=== PATIENT | male | born 1955 | race Caucasian/White ===

== ENCOUNTER 2019-05-25 09:33 | Emergency (ER) | payer MEDICARE ==
[2019-05-25] MEDS ORDERED: Calcium Carbonate 500 MG Tab.Chew PO ONE (10:52)
--- NOTE | 2019-05-25 10:58 | EDM.PDOC ---
ED HPI GENERAL MEDICAL PROBLEM - General Chief Complaint: General Stated Complaint: HEART??? Time Seen by Provider: 05/25/19 10:40 Source of Information: Reports: Patient, Old Records, RN History Limitations: Reports: No Limitations - History of Present Illness INITIAL COMMENTS - FREE TEXT/NARRATIVE: 64 yo male presents to the ER due to defibrillator beeping. He lost the cord to his testing device that connects to the phone system so couldn't test it himself. He called [facility] and was told to come to the ER. The beeping has been on and off since yesterday morning. He feels fine. Onset: Sudden Onset Date: 05/24/19 Duration: Day(s): (1+), Intermittent Location: Reports: Chest Quality: Reports: Other (no pain) Severity: Mild Improves with: Reports: None Worsens with: Reports: Other (unknown) Context: Reports: Other (See HPI) Associated Symptoms: Reports: No Other Symptoms Treatments STATION MASTER: Reports: Other (see below) (none) - Related Data Allergies Allergy/AdvReac Type Severity Reaction Status Date / Time No Known Allergies Allergy Verified 05/25/19 09:54 Home Meds: Home Meds Amiodarone HCl [Pacerone] 200 mg PO DAILY 05/25/19 [History] Metoprolol Succinate 25 mg PO DAILY 05/25/19 [History] Past Medical History Cardiovascular History: Reports: Heart Murmur, Hypertension, [place] Other Cardiovascular History: left bundle branch block Social & Family History - Tobacco Use Smoking Status *Q: Unknown Ever Smoked ED ROS GENERAL - Review of Systems Review Of Systems: See Below Constitutional: Reports: No Symptoms HEENT: Reports: No Symptoms Respiratory: Reports: No Symptoms Cardiovascular: Reports: No Symptoms Musculoskeletal: Reports: No Symptoms Skin: Reports: No Symptoms Neurological: Reports: No Symptoms Psychiatric: Reports: No Symptoms ED EXAM, GENERAL - Physical Exam Exam: See Below Exam Limited By: No Limitations General Appearance: Alert, WD/WN, No Apparent Distress Eye Exam: Bilateral Eye: PERRL Ears: Normal External Exam, Hearing Grossly Normal Ear Exam: Bilateral Ear: Auricle Normal Nose: Normal Inspection, No Blood Throat/Mouth: Normal Inspection, Normal Lips, Normal Oropharynx, Normal Voice, No Airway Compromise Head: Atraumatic, Normocephalic Neck: Normal Inspection Respiratory/Chest: No Respiratory Distress, Lungs Clear, Normal Breath Sounds, No Accessory Muscle Use Cardiovascular: Regular Rate, Rhythm, No Edema GI/Abdominal: Normal Bowel Sounds, Soft, Non-Tender, No Distention Back Exam: Normal Inspection, CVA Tenderness (R), CVA Tenderness (L) Extremities: Normal Inspection, Normal Range of Motion, Non-Tender, No Pedal Edema Neurological: Alert, Oriented, CN II-XII Intact, Normal Cognition, No Motor/ Sensory Deficits Psychiatric: Normal Affect, Normal Mood Skin Exam: Warm, Dry, Intact, Normal Color, No Rash Course - Vital Signs Text/Narrative:: Connected his defib with [employer], no issues discovered. Last Recorded V/S: Last Vital Signs Temp 35.2 C L 05/25/19 10:01 Pulse 69 05/25/19 10:01 Resp 16 05/25/19 10:01 BP 147/103 H 05/25/19 10:01 Pulse Ox 94 L 05/25/19 10:01 - Orders/Labs/Meds Meds: Medications Discontinued Medications Generic Name Dose Route Start Last Admin Trade Name Zehra PRN Reason Stop Dose Admin Calcium Carbonate/Glycine 1,000 mg 05/25/19 10:52 05/25/19 10:56 Tums PO 05/25/19 10:53 1,000 mg ONETIME ONE Administration Departure - Departure Time of Disposition: 11:00 Disposition: Home, Self-Care 01 Condition: Good Clinical Impression: Implantable cardioverter-defibrillator (ICD) in situ - Discharge Information *PRESCRIPTION DRUG MONITORING PROGRAM REVIEWED*: No *COPY OF PRESCRIPTION DRUG MONITORING REPORT IN PATIENT ERIN: No Referrals: PCP,None [Primary Care Provider] - Forms: ED Department Discharge Additional Instructions: Follow up with your thin film technician on Monday, return as needed.
== END 2019-05-25 11:06 | disposition home or self-care (01) ==
LOC: JP.ED 09:33
DX: Z95.810 Presence of automatic (implantable) cardiac defibrillator (principal); I10 Essential (primary) hypertension; I25.2 Old myocardial infarction; Z79.899 Other long term (current) drug therapy
CPT/HCPCS: 99283; A9270

== ENCOUNTER 2022-03-01 05:19 | Emergency (ER) | payer MEDICARE | END 2022-03-01 06:46 | disposition home or self-care (01) | LOC: JP.ED 05:19 | DX: N39.0 Urinary tract infection, site not specified (principal); I10 Essential (primary) hypertension; I25.2 Old myocardial infarction; Z79.899 Other long term (current) drug therapy; Z79.82 Long term (current) use of aspirin; Z86.16 Personal history of COVID-19 | CPT/HCPCS: 81001; 87086; 87088; 87186; 99281; 99283 ==